=== PATIENT | male | born 1955 | race Caucasian/White ===

== ENCOUNTER 2018-04-20 11:58 | Day surgery (SDC) | payer OTHER, SELFPAY ==
--- NOTE | 2018-04-20 | PATH_ITS ---
[facility] Accession Number: [id number] . 01 Material submitted: . PART A: ANTRAL BIOPSY PART B: GE JUNCTION BIOPSY . 02 Diagnosis: A. Stomach, Antrum, Biopsy: Antral mucosa with reactive gastropathy. No evidence of Helicobacter on H/E stain. Negative for intestinal metaplasia. Negative for dysplasia and malignancy. . B. 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 Negative for dysplasia and malignancy. I04/21/2018 . 02 Electronically signed: . Alexa Johnson MD, Pathologist NPI- [id number] . 01 Gross description: . Received are two formalin-filled containers, both labeled with the patient's name: . A. In a container labeled antral, are three fragments of butler, soft tissue which range in size from less than 0.1 cm to 0.3 x 0.2 x 0.2 cm. All fragments are totally submitted in cassette A. B. In a container labeled GE junction, are multiple less than 0.1 cm to 0.3 cm portions of tissue, which are filtered, wrapped, and entirely submitted in cassette B. ([id number]) /FRR . 02 Pathologist provided ICD-10: R10.9, K22.70 . 02 CPT . 963965, 144474 Performed at: 01 [facility] [address] [facility], [place], [place] [id number] MD Jose J Vallejo MD Phone: [phone] Performed at: 02 [facility] [address] [place], [place] [id number] MD Malachi Mederos MD Phone: [phone]
[2018-04-20 12:19] VITALS: BP 145/91; PULSE 66; RESP 16; TEMP 36.6; O2SAT 98
[2018-04-20] MEDS: SODIUM CHLORIDE 0.9% 1,000 ML 200 ML IV (12:48)
--- NOTE | 2018-04-20 13:05 | PM.HP.1 ---
History of Present Illness Date Patient Seen: 04/20/18 Time Patient Seen: 13:05 Chief complaint: [id number] Narrative: History of Carranza's esophagus and significant reflux disease now with progressive reflux symptoms despite medical management. Denies dysphagia or odynophagia. It has been several years since his last EGD for Carranza's esophagus surveillance. Patient History Medical History Allergic rhinitis (Acute) Carranza's esophagus (Acute) Erectile dysfunction (Acute) Gastroesophageal reflux disease (Acute) Status post open reduction with internal fixation (ORIF) of fracture of ankle (Acute) Surgical History H/O esophagogastroduodenoscopy (Acute) Status post laparoscopic Juan Jose fundoplication (Acute) Family & Social History Family History: Reviewed 04/20/18 by Reyes Campbell MD Social History: household members spouse Meds Home Medications Medication Instructions Recorded Confirmed Type sildenafil (antihypertensive) 20 mg PO Q DAY PRN #30 tab 01/03/18 04/20/18 Rx ondansetron [Zofran ODT] 8 mg SUBLINGUAL Q8HP PRN 04/20/18 04/20/18 History Allergies Allergy/AdvReac Type Severity Reaction Status Date / Time No Known Drug Allergies Allergy Verified 04/20/18 12:12 Review of Systems Review of Systems Has not changed since his initial evaluation of January 25, 2018 All systems reviewed & are unremarkable except as noted in HPI and below Exam Vital Signs (past 8 hours): Vital Signs - 8 hr 04/20/18 12:19 Temperature 97.9 F Pulse Rate 66 Respiratory Rate 16 Blood Pressure 145/91 H Pulse Oximetry 98 Pulse Oximetry 98 Oxygen Delivery Method Room Air Narrative Exam Narrative: Well-nourished well-developed male in no acute distress. Alert oriented x3 is at the bedside Neck is supple Chest clear to auscultation Abdomen soft, nondistended, nontender. Well-healed laparoscopic scars without hernias. Extremities show no clubbing, cyanosis, or edema Objective Labs Labs: No recent laboratory or radiographic studies for review Assessment & Plan Plan: Assessment/Plan Narrative: 63-year-old male with history of Carranza's esophagus and significant reflux disease status post Juan Jose fundoplication now with progressive symptoms of reflux despite medical management. He certainly could have recurrent disease, neoplasm, or slipped Juan Jose. EGD with biopsy is recommended. Technical details of the procedure were discussed. Risks, benefits, alternatives were explained. Risks including but not limited to sedation, aspiration, bleeding, pain, missed lesion, nondiagnostic biopsy, inadequate biopsy, recurrent disease, need for further surgery, need for further tests, need for further studies, esophageal perforation, gastric perforation, duodenal perforation, need for major thoracic surgery, need for major abdominal surgery, and all attendant risks of major emergent surgery were all discussed at length. Questions were answered to his satisfaction, and he voiced understanding. Consent was placed on the chart. Proceed as above.
--- NOTE | 2018-04-20 13:12 | P.HP_ITS ---
History of Present Illness Date Patient Seen: 04/20/18 Time Patient Seen: 13:05 Chief complaint: [id number] Narrative: History of Carranza's esophagus and significant reflux disease now with progressive reflux symptoms despite medical management. Denies dysphagia or odynophagia. It has been several years since his last EGD for Carranza's esophagus surveillance. Patient History Medical History Allergic rhinitis (Acute) Carranza's esophagus (Acute) Erectile dysfunction (Acute) Gastroesophageal reflux disease (Acute) Status post open reduction with internal fixation (ORIF) of fracture of ankle ( Acute) Surgical History H/O esophagogastroduodenoscopy (Acute) Status post laparoscopic Juan Jose fundoplication (Acute) Family & Social History Family History: Reviewed 04/20/18 by Reyes Campbell MD Social History: household members spouse Meds Home Medications Medication Instructions Recorded Confirmed Type sildenafil (antihypertensive) 20 mg PO Q DAY PRN #30 tab 01/03/18 04/20/18 Rx ondansetron [Zofran ODT] 8 mg SUBLINGUAL Q8HP PRN 04/20/18 04/20/18 History Allergies Allergy/AdvReac Type Severity Reaction Status Date / Time No Known Drug Allergies Allergy Verified 04/20/18 12:12 Review of Systems Review of Systems Has not changed since his initial evaluation of January 25, 2018 All systems reviewed & are unremarkable except as noted in HPI and below Exam Vital Signs (past 8 hours): Vital Signs - 8 hr 3 04/20/18 12:19 Temperature 97.9 F Pulse Rate 66 Respiratory Rate 16 Blood Pressure 145/91 H Pulse Oximetry 98 Pulse Oximetry 98 Oxygen Delivery Method Room Air Narrative Exam Narrative: Well-nourished well-developed male in no acute distress. Alert oriented x3 is at the bedside Neck is supple Chest clear to auscultation Abdomen soft, nondistended, nontender. Well-healed laparoscopic scars without hernias. Extremities show no clubbing, cyanosis, or edema Objective Labs Labs: No recent laboratory or radiographic studies for review Assessment & Plan Plan: Assessment/Plan Narrative: 63-year-old male with history of Carranza's esophagus and significant reflux disease status post Juan Jose fundoplication now with progressive symptoms of reflux despite medical management. He certainly could have recurrent disease, neoplasm, or slipped Juan Jose. EGD with biopsy is recommended. Technical details of the procedure were discussed. Risks, benefits, alternatives were explained. Risks including but not limited to sedation, aspiration, bleeding, pain, missed lesion, nondiagnostic biopsy, inadequate biopsy, recurrent disease , need for further surgery, need for further tests, need for further studies, esophageal perforation, gastric perforation, duodenal perforation, need for major thoracic surgery, need for major abdominal surgery, and all attendant risks of major emergent surgery were all discussed at length. Questions were answered to his satisfaction, and he voiced understanding. Consent was placed on the chart. Proceed as above.
--- NOTE | 2018-04-20 13:12 | PM.PREOP ---
Pre-operative Note Interval Note Pre-op Check: History & Physical Reviewed by Physician, Exam Performed and History & Physical exam performed today H&P completed within 30 days and has changed as indicated here:: Patient seen and examined once again today. He was also seen in the office on January 25, 2018. History of physical examination is updated from that time and performed today. Please see the record for such. Proceed with EGD and biopsy as planned. ASA Class (for procedural sedation): II
[2018-04-20] MEDS: fentaNYL 250 MCG/5 ML INJ IV (13:22)
[2018-04-20] MEDS: MIDAZOLAM 5 MG/5 ML VIAL IV (13:23)
[2018-04-20] MEDS: LIDOCAINE 4% SOLN 50 ML 20 ML TOP (13:23)
[2018-04-20] MEDS: TETRACAINE/BENZOCAINE/BUTAMBEN (CETACAINE) BOTTLE 1 SPRAY TOP (13:24)
--- NOTE | 2018-04-20 13:34 | PM.OP.ENDO ---
Operative Date/Time/Diagnoses - Date of procedure: 04/13/18 Time of procedure: 13:34 Pre-op diagnosis: Gastroesophageal reflux disease and history of Carranza's esophagus Post-op diagnosis: same Procedure & Clinicians Study performed: 1. Sedation per surgeon 2. Esophagogastroduodenoscopy with cold forceps biopsies Same procedure as scheduled: Yes Indications: 63-year-old male with longstanding history of intractable reflux disease now status post Juan Jose fundoplication who presented with recurrent episodes of reflux requiring medical management. Furthermore, he has a history of Carranza's esophagus and it has been sometime since his last surveillance examination. EGD is currently recommended. Surgeon: Reyes Campbell Procedure Notes Procedure in detail: After obtaining informed consent, the patient was brought to the GI suite and placed in the left lateral decubitus position on the examination table. After placement of appropriate monitors, the patient was given incremental doses of Versed and Fentanyl until an appropriate level of sedation was achieved. A time out was held per SCOAP protocol. A bite block was gently placed between the patient's teeth. The endoscope was lubricated and then passed into the patient's posterior oropharynx. The esophagus was cannulated under direct vision and the scope was passed to the second portion of the duodenum without difficulty. The scope was then withdrawn with careful examination of all areas of the upper GI tract and mucosa. In the stomach, the instrument was retroflexed and the GE junction examined. The fundoplication appeared to be intact but could not be fully examined. There was some suggestion of a slipped wrap. The scope was straightened and the procedure continued with examination of the remainder of the upper GI tract. Findings are noted above. Air was aspirated from the stomach and the endoscope gently removed from the esophagus. The patient was allowed to awaken from sedation without difficulty and taken to the post-anesthesia care unit in good condition. Scope withdrawal time: Not applicable Sedation minutes: 9 Findings: Carranza's esophagus (Moderate irregular esophagitis at a foreshortened GE junction located at 35 cm from the incisors), gastritis and other findings (Duodenitis) Specimen(s): other (1. Antral biopsies 2. Gastroesophageal junction biopsies) Complications: none Recommendations: Reflux diet, No ASA/NSAIDS, EGD in 3 years and Continue medication(s) Plan for aftercare: 1. Discharge to home 2. Follow up in surgery Clinic in 2 weeks 3. Likely to require upper GI study in Radiology Follow up: weeks (Two weeks in surgery clinic) Disposition: PACU
[2018-04-20 13:40] VITALS: BP 117/86; PULSE 68; RESP 16; TEMP 36; O2SAT 96
[2018-04-20 13:45] VITALS: BP 120/83; PULSE 72; RESP 16; O2SAT 96
[2018-04-20 13:49] VITALS: BP 124/79; PULSE 75; RESP 16; O2SAT 96
[2018-04-20 13:53] VITALS: BP 105/71; PULSE 79; RESP 16; TEMP 36.3; O2SAT 95
[2018-04-20 14:06] VITALS: BP 114/74; PULSE 69; RESP 16; TEMP 36.5; O2SAT 95
== END 2018-04-20 14:13 | disposition home or self-care (01) ==
PROVIDERS: PCP Family Medicine; Visit Provider Surgery
PROC: 0DJ08ZZ Inspection of Upper Intestinal Tract, Via Natural or Artificial Opening Endoscopic (ICD-10-PCS; CPT 43235; principal; 2018-04-20 13:00)
DX: K22.70 Barrett's esophagus without dysplasia (principal); K21.9 Gastro-esophageal reflux disease without esophagitis
CPT/HCPCS: 43239; 99152; J2250; J3010

== ENCOUNTER → 2018-05-01 07:29 | Outpatient (CLI) | payer OTHER, SELFPAY ==
--- NOTE | 2018-05-01 07:31 | DI.RAD.S_ITS ---
PROCEDURE: FL UPPER GI W AIR INDICATIONS: 63 year-old male with gastroesophageal reflux after Juan Jose, and no obvious disease on recent EGD. COMPARISON: [facility], CT, ABDOMEN/PELVIS WITH CONTRAST, 07/11/2017, 17:06. FINDINGS: KUB: Preprocedural online program coordinator film demonstrates a normal bowel gas pattern. No suspicious abdominal calcifications. Visualized solid organ contours appear normal. Bony structures appear unremarkable. Esophagus: Esophageal mucosa is normal on air-contrast views. On single-contrast views, the Juan Jose fundoplication wrap appears intact, but has herniated superior to the diaphragmatic hiatus. A cricopharyngeal bar is noted within the hypopharynx. There is normal esophageal peristalsis. No strictures or diverticula. There is elicited gastroesophageal reflux to the aortic arch level with patient coughing. There is delayed transit of a calibrated barium tablet through the gastroesophageal junction. Stomach: The stomach is normally distensible, with normal rugal fold thickness. No mucosal masses or ulcers. Pylorus and duodenal bulb appear normal in morphology. Duodenal folds are normal in thickness as well. Small periampullary diverticulum is incidentally noted in the second portion of the duodenum. IMPRESSION: 1. Juan Jose fundoplication wrap appears intact but has herniated above the diaphragmatic hiatus, not significantly changed since July 2017 CT scan. 2. Elicited gastroesophageal reflux during the examination with patient coughing. 3. Mildly delayed transit of a calibrated barium tablet through the gastroesophageal junction. 4. Small incidental periampullary diverticulum in the second portion of the duodenum. 5. Prominent cricopharyngeal bar in the hypopharynx, a finding that can be associated with gastroesophageal reflux. Dictated by: Chandrakant Lyons M.D. on 05/01/2018 at 8:46 Approved by: Chandrakant Lyons M.D. on 05/01/2018 at 8:52
== END ==
PROVIDERS: PCP Family Medicine; Visit Provider Surgery
DX: K21.9 Gastro-esophageal reflux disease without esophagitis (principal)
CPT/HCPCS: 74247

== ENCOUNTER → 2019-01-18 08:38 | Outpatient (CLI) | payer OTHER, SELFPAY ==
[2019-01-18 09:33] LABS: Hematocrit 45.5 % (41-53); Hemoglobin 15.8 g/dL (13.5-17.5); Mean Corpuscular HGB Conc 34.6 % (30-36); Mean Corpuscular Hemoglobin 29.2 PG (26-34); Mean Corpuscular Volume 84.4 fL (80-100); Platelet Count 151 X10^3/uL (150-400); Red Blood Cell Count 5.39 X10^6/uL (4.5-5.9); Red Cell Distribution Width 14.1 % (11.6-14.8); White Blood Cell Count 4.5 X10^3/uL (4.5-11.0)
[2019-01-18 09:47] LABS: Hemoglobin A1C% w Est Avg Glu 4.9 % (4.0-6.0)
[2019-01-18 10:54] LABS: Alanine Aminotransferase 33 IU/L (21-72); Albumin 4.4 g/dL (3.5-5.0); Albumin Globulin Ratio 1.8 (1.0-2.8); Alkaline Phosphatase 59 U/L (38-126); Aspartate Aminotransferase 22 IU/L (17-59); BUN Creatinine Ratio 25.6 (6-22); Bilirubin Total 0.8 mg/dL (0.2-1.3); Blood Urea Nitrogen 23 mg/dL (9-20); Calcium 9.4 mg/dL (8.4-10.2); Carbon Dioxide 30 mmol/L (22-32); Chloride 102 mmol/L (98-107); Cholesterol 171 mg/dL (140-199); Estimated Glomerular Filt Rate > 60.0 mL/min (>60); Globulin 2.4 g/dL (1.7-4.1); Glucose 81 mg/dL (80-110); HDL Cholesterol 56 mg/dL (40-60); HEMOLYSIS < 15 (0-50); LDL Cholesterol Calculated 93 mg/dL (<100); Sodium 140 mmol/L (137-145); Total Protein 6.8 g/dL (6.3-8.2); Triglycerides 110 mg/dL (35-150)
[2019-01-18 11:23] LABS: Prostate Specific Antigen Scrn 1.95 ng/mL (0.1-4.0)
== END ==
PROVIDERS: Visit Provider Nurse Practitioner Family
DX: Z68.31 Body mass index [BMI] 31.0-31.9, adult (principal); R35.0 Frequency of micturition; Z00.00 Encounter for general adult medical examination without abnormal findings; Z12.5 Encounter for screening for malignant neoplasm of prostate
CPT/HCPCS: 36415; 80053; 80061; 83036; 85027; G0103

== ENCOUNTER → 2021-01-14 09:58 | Outpatient (CLI) | payer MEDICARE, OTHER, SELFPAY ==
[2021-01-14 10:38] LABS: Add Manual Diff / Slide Review NO; Basophils Absolute Auto 0 /uL (0-100); Basophils Percent Auto 0.4 % (0-2); Eosinophils Absolute Auto 100 /uL (0-450); Eosinophils Percent Auto 1.5 % (2-4); Hematocrit 45.6 % (41-53); Hemoglobin 15.7 g/dL (13.5-17.5); Lymphocytes Absolute Auto 1500 /uL (1100-4500); Lymphocytes Percent Auto 32.7 % (25-40); Mean Corpuscular HGB Conc 34.4 % (30-36); Mean Corpuscular Volume 84.4 fL (80-100); Monocytes Absolute Auto 400 /uL (0-900); Monocytes Percent Auto 8.1 % (3-14); Neutrophils Absolute Auto 2600 /uL (1500-7000); Neutrophils Percent Auto 57.3 % (50-75); Platelet Count 140 X10^3/uL (150-400); Red Blood Cell Count 5.41 X10^6/uL (4.5-5.9); Red Cell Distribution Width 14.1 % (11.6-14.8); White Blood Cell Count 4.5 X10^3/uL (4.5-11.0)
[2021-01-14 11:04] LABS: Alanine Aminotransferase 26 IU/L (<50); Albumin 4.7 g/dL (3.5-5.0); Albumin Globulin Ratio 1.7 (1.0-2.8); Alkaline Phosphatase 65 U/L (38-126); Aspartate Aminotransferase 29 IU/L (17-59); BUN Creatinine Ratio 19.6 (6-22); Blood Urea Nitrogen 18 mg/dL (9-20); Carbon Dioxide 31 mmol/L (22-32); Chloride 103 mmol/L (98-107); Cholesterol 174 mg/dL (140-199); Estimated Glomerular Filt Rate > 60.0 mL/min (>60); Globulin 2.7 g/dL (1.7-4.1); Glucose 98 mg/dL (80-110); HDL Cholesterol 50 mg/dL (40-60); HEMOLYSIS < 15 (0-50); LDL Cholesterol Calculated 97 mg/dL (<100); Potassium 4.9 mmol/L (3.4-5.1); Sodium 139 mmol/L (137-145); Total Protein 7.4 g/dL (6.3-8.2); Triglycerides 134 mg/dL (35-150)
[2021-01-14 11:34] LABS: Prostate Specific Antigen 2.18 ng/mL (0.10-4.00)
[2021-01-14 11:36] LABS: TSH w/ Reflex to FT4 3.68 uIU/mL (0.47-4.68)
== END ==
PROVIDERS: PCP Family Medicine; Referring Provider Family Medicine; Visit Provider Family Medicine
DX: Z00.00 Encounter for general adult medical examination without abnormal findings (principal); K22.719 Barrett's esophagus with dysplasia, unspecified; Z83.3 Family history of diabetes mellitus
CPT/HCPCS: 36415; 80053; 80061; 83036; 84153; 84443; 85025; G0103

== ENCOUNTER → 2021-11-27 10:44 | Outpatient (CLI) | payer MEDICARE, OTHER, SELFPAY ==
[2021-11-27 11:41] LABS: COVID19 -Nasal RAPID POSITIVE (Negative)
== END ==
PROVIDERS: PCP Family Medicine; Visit Provider Physician Assistant
DX: U07.1 COVID-19 (principal); J02.9 Acute pharyngitis, unspecified; Z20.822 Contact with and (suspected) exposure to COVID-19
CPT/HCPCS: 87635

== ENCOUNTER 2022-01-15 10:40 | Emergency (ER) | payer MEDICARE, OTHER, SELFPAY ==
[2022-01-15] VITALS (8 sets, daily range): BP systolic 139–150; BP diastolic 82–95; PULSE 61–68; RESP 17–20; TEMP 36.4; O2SAT 96–100; BMI 31.5
--- NOTE | 2022-01-15 11:26 | DI.RAD.S_ITS ---
PROCEDURE: XR CHEST 1V INDICATIONS: chest pain TECHNIQUE: One view of the chest was acquired. COMPARISON: [facility], , CHEST 2 VIEW, 05/04/2016, 15:41. FINDINGS: Surgical changes and devices: None. Lungs and pleura: Lungs are clear. No pleural effusions or pneumothorax. Mediastinum: Mediastinal contours appear normal. Heart size is normal. Bones and chest wall: No suspicious bony lesions. Remote, healed right lateral rib fractures. Overlying soft tissues appear unremarkable. IMPRESSION: No acute cardiopulmonary disease. Dictated by: Suzanne Mcdowell M.D. on 01/15/2022 at 11:59 Approved by: Suzanne Mcdowell M.D. on 01/15/2022 at 12:00
--- NOTE | 2022-01-15 11:53 | ED.SYNCOPE ---
HPI - Syncope General Chief Complaint: Syncope Stated Complaint: passed out yesterday coughing Time Seen by Provider: 01/15/22 11:50 Source: patient Mode of arrival: Ambulatory History of Present Illness HPI narrative: Patient is a 67-year-old male with history of acid reflex and decent procedure presenting today with cough and cough syncope. He states he was diagnosed with COVID in November he is vaccinated x3. He has had a cough slightly productive with yellow sputum ever since. He actually feels than he did in November however yesterday he coughed so hard that he passed out. He now it still feels like he sees stars even at rest. He feels light headed. He has not passed out since then. He denies numbness tingling or weakness. He is not having palpitations or chest pain. Related Data Previous Rx's Medication Instructions Recorded omeprazole 20 mg capsule,delayed 20 mg PO DAILY #90 cap 11/21/20 release albuterol sulfate 90 mcg/actuation 2 puff INHALATION Q4-6H PRN #8.5 01/15/22 aerosol inhaler gram Allergies Allergy/AdvReac Type Severity Reaction Status Date / Time No Known Drug Allergies Allergy Verified 01/15/22 11:25 Review of Systems Review of Systems Narrative: GENERAL: Denies chills, fatigue, malaise, fever, sweats, travel HEENT: Denies sinus pain, ear pain, sore throat, difficulty swallowing, neck pain RESPIRATORY: Denies dyspnea, cough, wheezing, hemoptysis, sputum. CARDIOVASCULAR: Denies chest pain, palpitations, orthopnea, edema GASTROINTESTINAL: Denies nausea, vomiting, abdominal pain, diarrhea, constipation, melena. : Denies dysuria, frequency, incontinence, hematuria, urinary retention, flank pain. MUSCULOSKELETAL: Denies weakness, joint pain, or bony pain SKIN: No rash, no erythema, no pruritus NEUROLOGIC: see HPI PSYCHIATRIC: No concerning psychosocial issues. 12 point review of systems is negative except for those stated above and HPI Patient History Medical History Allergic rhinitis Carranza's esophagus (~2013) Erectile dysfunction Family history of diabetes mellitus Gastroesophageal reflux disease (~2013) Well adult exam Surgical History Anesthesia H/O esophagogastroduodenoscopy Status post laparoscopic Juan Jose fundoplication (~2013) Status post open reduction with internal fixation (ORIF) of fracture of ankle Family History Brother Age: 70 Hypertension Stroke Sister Age: 68 Hypertension Sister Age: 72 Diabetes mellitus Hypertension Hyperlipidemia Mother Cancer Grandmother Cancer History of heart disease Mental health problem Grandmother Cancer History of heart disease Social History household members: spouse Smoking Status: Never smoker second hand exposure: No alcohol intake: current (8-16oz of wine a day) substance use type: does not use Smoking Status: Never smoker alcohol intake frequency: 0-2 drinks per day Alcohol type: wine Substance Use Type: does not use Exam Initial Vital Signs Initial Vital Signs: Vital Signs Temperature 97.5 F L 01/15/22 11:13 Pulse Rate 68 01/15/22 11:13 Respiratory Rate 17 01/15/22 11:13 Blood Pressure 148/85 H 01/15/22 11:13 Pulse Oximetry 98 01/15/22 11:13 GENERAL: Alert well-appearing 57-year-old male and in no acute distress. HEENT: Head atraumatic,EOMI, pupils reactive, face symmetric, moist mucous membranes CARDIOVASCULAR: Regular rate and rhythm without murmurs, rubs or gallops. RESPIRATORY: Breath sounds equal bilaterally, no wheezes rales or rhonchi. ABDOMEN: Soft, nontender. Normoactive bowel sounds all 4 quadrants. No guarding or rebound. EXTREMITIES: Normal range of motion, no clubbing or edema. Neurovascularly intact NEUROLOGICAL: Alert and oriented x4.Normal gait and speech. Cranial nerves II through XII grossly intact. Good [id number], good [id number], strength equal bilaterally, no dysarthria or aphasia, sensation in tact to soft touch bilaterally, no visual changes, no facial droop SKIN: Warm, dry, no laceration, no petechiae, no rashes or lesions. Scores NIH Stroke Scale Level of Conciousness: Alert, keenly responsive Ask month/age: Answers both questions correctly. Open/close eyes, close hand: Performs both tasks correctly Best gaze horizontal: Normal Visual lewis: No visual loss Facial palsy: Normal symetrical movement Left arm drift: No drift for full 10 sec Right arm drift: No drift for full 10 sec Left leg drift: No drift for full 5 sec Right leg drift: No drift for full 5 sec Limb ataxia: Absent Sensory on face/arms/legs: Normal, no sensory loss Best language: No aphasia, normal Dysarthria: Normal Extinction or inattention: No abnormality Total NIH Stroke scale score: 0 Course Orders Ordered: ED Orders 01/15/22 11:21 COVID19 -Nasal swab/Pre-Proc Stat 01/15/22 11:26 XR chest 1V Stat EKG-12 Lead Stat 01/15/22 12:00 Complete Blood Count AUTO DIFF Stat Comprehensive Metabolic Panel Stat D Dimer Stat Lipase Stat Magnesium Stat NT-proBNP (BNP-Adult 18+) Stat Prothrombin Time INR Stat Troponin & CK Cardiac Panel Stat Vital Signs Vital signs: Vital Signs - 8 hr 01/15/22 11:13 01/15/22 16:00 01/15/22 17:00 Temperature 97.5 F L Pulse Rate 68 67 67 Respiratory Rate 17 20 18 Blood Pressure 148/85 H Blood Pressure [Left Arm] 150/95 H 148/86 H Pulse Oximetry 98 99 99 01/15/22 17:13 01/15/22 17:15 01/15/22 17:30 Temperature Pulse Rate 64 67 61 Respiratory Rate Blood Pressure 139/82 Blood Pressure [Left Arm] Pulse Oximetry 96 99 100 01/15/22 17:45 01/15/22 18:02 Temperature Pulse Rate 65 68 Respiratory Rate 20 Blood Pressure 139/82 Blood Pressure [Left Arm] Pulse Oximetry 99 99 MDM - Syncope Lab Data Result diagrams: 01/15/22 12:00 01/15/22 12:00 Labs: Lab Results 01/15/22 01/15/22 01/15/22 Range/Units 11:21 12:00 12:00 WBC 4.6 (4.5-11.0) X10^3/uL RBC 5.27 (4.5-5.9) X10^6/uL Hgb 15.4 (13.5-17.5) g/dL Hct 44.6 (41-53) % MCV 84.7 (80-100) fL MCH 29.1 (26-34) PG MCHC 34.4 (30-36) % RDW 13.8 (11.6-14.8) % Plt Count 158 (150-400) X10^3/uL Neut % (Auto) 59.0 (50-75) % Lymph % (Auto) 31.1 (25-40) % [place] % (Auto) 7.2 (3-14) % Eos % (Auto) 2.2 (2-4) % Baso % (Auto) 0.5 (0-2) % Lymph # (Auto) Not Reportable [place] # (Auto) Not Reportable Baso # (Auto) Not Reportable PT 11.9 (10.1-12.7) SECONDS INR 1.1 (0.9-1.3) D-Dimer (<230) ng/mL Sodium (137-145) mmol/L Potassium (3.4-5.1) mmol/L Chloride (98-107) mmol/L Carbon Dioxide (22-32) mmol/L BUN (9-20) mg/dL Creatinine (0.66-1.25) mg/dL Estimated GFR (>60) mL/min BUN/Creatinine Ratio (6-22) Glucose (80-110) mg/dL Calcium (8.4-10.2) mg/dL Magnesium (1.6-2.3) mg/dL Total Bilirubin (0.2-1.3) mg/dL AST (17-59) IU/L ALT (<50) IU/L Alkaline Phosphatase (38-126) U/L Total Creatine Kinase (55-170) U/L CK-MB (CK-2) CK-MB (CK-2) Rel Index Troponin I (0.01-0.034) ng/mL NT-Pro-B Natriuret Pep (<125) pg/mL Total Protein (6.3-8.2) g/dL Albumin (3.5-5.0) g/dL Globulin (1.7-4.1) g/dL Albumin/Globulin Ratio (1.0-2.8) Lipase (23-300) U/L SARS-CoV-2 (PCR) Negative (Negative) 01/15/22 01/15/22 Range/Units 12:00 12:00 WBC (4.5-11.0) X10^3/uL RBC (4.5-5.9) X10^6/uL Hgb (13.5-17.5) g/dL Hct (41-53) % MCV (80-100) fL MCH (26-34) PG MCHC (30-36) % RDW (11.6-14.8) % Plt Count (150-400) X10^3/uL Neut % (Auto) (50-75) % Lymph % (Auto) (25-40) % [place] % (Auto) (3-14) % Eos % (Auto) (2-4) % Baso % (Auto) (0-2) % Lymph # (Auto) [place] # (Auto) Baso # (Auto) PT (10.1-12.7) SECONDS INR (0.9-1.3) D-Dimer 397 H (<230) ng/mL Sodium 141 (137-145) mmol/L Potassium 4.4 (3.4-5.1) mmol/L Chloride 105 (98-107) mmol/L Carbon Dioxide 32 (22-32) mmol/L BUN 17 (9-20) mg/dL Creatinine 0.85 (0.66-1.25) mg/dL Estimated GFR > 60.0 (>60) mL/min BUN/Creatinine Ratio 20.0 (6-22) Glucose 89 (80-110) mg/dL Calcium 9.4 (8.4-10.2) mg/dL Magnesium 2.3 (1.6-2.3) mg/dL Total Bilirubin 0.8 (0.2-1.3) mg/dL AST 27 (17-59) IU/L ALT 25 (<50) IU/L Alkaline Phosphatase 65 (38-126) U/L Total Creatine Kinase 42 L (55-170) U/L CK-MB (CK-2) TNP CK-MB (CK-2) Rel Index TNP Troponin I < 0.012 (0.01-0.034) ng/mL NT-Pro-B Natriuret Pep 68 (<125) pg/mL Total Protein 7.3 (6.3-8.2) g/dL Albumin 4.5 (3.5-5.0) g/dL Globulin 2.8 (1.7-4.1) g/dL Albumin/Globulin Ratio 1.6 (1.0-2.8) Lipase 51 (23-300) U/L SARS-CoV-2 (PCR) (Negative) Point of Care Testing Glucose POC 89 Imaging Data Chest x-ray: Radiologist's Impression: PROCEDURE:? XR CHEST 1V ? INDICATIONS:? chest pain ? TECHNIQUE:? One view of the chest was acquired.? ? COMPARISON:? [facility], , CHEST 2 VIEW, 05/04/2016, 15:41. ? FINDINGS:? ? Surgical changes and devices:? None.? ? Lungs and pleura:? Lungs are clear.? No pleural effusions or pneumothorax.? ? Mediastinum:? Mediastinal contours appear normal.? Heart size is normal.? ? Bones and chest wall:? No suspicious bony lesions.? Remote, healed right lateral rib fractures.? Overlying soft tissues appear unremarkable.? ? IMPRESSION:? No acute cardiopulmonary disease.? ? ? Dictated by: Suzanne Mcdowell M.D. on 01/15/2022 at 11:59 ? ? ECG Data Interpretation: Normal as rate 66 TN interval 176 QRS 100 QTC 389, no ST changes no T-wave inversions MDM Narrative Medical decision making narrative: Patient had an episode of cough syncope yesterday. He has no focal deficits at this time. Chronic ongoing cough since he had COVID. His he has no focal deficits at this time. No need for any further imaging. He is given an albuterol inhaler along with a spacer and teaching by respiratory. Discharge Plan Departure Patient Disposition: Home Clinical Impression: Cough syncope Instructions: DI for Syncope in Adults (Fainting) Activity Restrictions/Additional Instructions: *You have been diagnosed with cough syncope *What to do: At this time your syncopal episode was due from coughing and not getting oxygen she refrain. Use inhaler to see if it helps her coughing. He has been trying use 3 times a day to see if it decreases your cough. He can also use it with a coughing attack *Continue to take medications as directed Albuterol 1-2 puffs every 4 hours if needed --> SENT TO [facility] *Follow up with your primary care provider in 2-3 days or call [phone] *Return to ER if you should have worsening cough, chest pain, passing out, fever or any new, worsening or concerning symptoms Prescriptions: New albuterol sulfate 90 mcg/actuation HFA aerosol inhaler 2 puff INHALATION Q4-6H PRN (Reason: shortness of breath or wheezing) Qty: 8.5 0RF No Action omeprazole 20 mg capsule,delayed release(DR/EC) 20 mg PO DAILY Qty: 90 1RF Referrals: Jorge Rodriguez DO [Primary Care Provider] -
[2022-01-15 12:17] LABS: Add Manual Diff / Slide Review NO; Basophils Percent Auto 0.5 % (0-2); Eosinophils Percent Auto 2.2 % (2-4); Hematocrit 44.6 % (41-53); Hemoglobin 15.4 g/dL (13.5-17.5); Lymphocytes Percent Auto 31.1 % (25-40); Mean Corpuscular HGB Conc 34.4 % (30-36); Mean Corpuscular Hemoglobin 29.1 PG (26-34); Mean Corpuscular Volume 84.7 fL (80-100); Monocytes Percent Auto 7.2 % (3-14); Platelet Count 158 X10^3/uL (150-400); Red Blood Cell Count 5.27 X10^6/uL (4.5-5.9); Red Cell Distribution Width 13.8 % (11.6-14.8); White Blood Cell Count 4.6 X10^3/uL (4.5-11.0)
[2022-01-15 12:20] LABS: COVID19 -Nasal RAPID Negative (Negative)
[2022-01-15 12:27] LABS: INR 1.1 (0.9-1.3); Prothrombin Time 11.9 SECONDS (10.1-12.7)
[2022-01-15 12:36] LABS: Alanine Aminotransferase 25 IU/L (<50); Albumin 4.5 g/dL (3.5-5.0); Albumin Globulin Ratio 1.6 (1.0-2.8); Alkaline Phosphatase 65 U/L (38-126); Aspartate Aminotransferase 27 IU/L (17-59); Bilirubin Total 0.8 mg/dL (0.2-1.3); Blood Urea Nitrogen 17 mg/dL (9-20); Calcium 9.4 mg/dL (8.4-10.2); Carbon Dioxide 32 mmol/L (22-32); Chloride 105 mmol/L (98-107); Creatine Kinase 42 U/L (55-170); Estimated Glomerular Filt Rate > 60.0 mL/min (>60); Globulin 2.8 g/dL (1.7-4.1); Glucose 89 mg/dL (80-110); HEMOLYSIS < 15 (0-50); Lipase 51 U/L (23-300); Magnesium 2.3 mg/dL (1.6-2.3); Potassium 4.4 mmol/L (3.4-5.1); Sodium 141 mmol/L (137-145); Total Protein 7.3 g/dL (6.3-8.2)
[2022-01-15 12:48] LABS: NT-proBNP (BNP-Adult 18+) 68 pg/mL (<125); Troponin I < 0.012 ng/mL (0.01-0.034)
[2022-01-15 16:26] LABS: D Dimer 397 ng/mL (<230)
== END 2022-01-15 18:04 | disposition home or self-care (01) ==
PROVIDERS: Emergency Provider Emergency Medicine; PCP Family Medicine
DX: R55 Syncope and collapse (principal); R05.4 Cough syncope; Z20.822 Contact with and (suspected) exposure to COVID-19
CPT/HCPCS: 36415; 71045; 80053; 82550; 83690; 83735; 83880; 84484; 85025; 85379; 85610; 87635; 93005; 93010; 99284; C9803

== ENCOUNTER → 2023-01-18 09:49 | Outpatient (CLI) | payer MEDICARE, OTHER, SELFPAY ==
[2023-01-18 10:20] LABS: Add Manual Diff / Slide Review NO; Basophils Absolute Auto 0 /uL (0-100); Basophils Percent Auto 0.4 % (0-2); Eosinophils Absolute Auto 100 /uL (0-450); Eosinophils Percent Auto 1.7 % (2-4); Hematocrit 45.1 % (41-53); Hemoglobin 15.7 g/dL (13.5-17.5); Lymphocytes Absolute Auto 1400 /uL (1100-4500); Lymphocytes Percent Auto 25.4 % (25-40); Mean Corpuscular HGB Conc 34.8 % (30-36); Mean Corpuscular Hemoglobin 29.6 PG (26-34); Mean Corpuscular Volume 84.9 fL (80-100); Monocytes Absolute Auto 400 /uL (0-900); Monocytes Percent Auto 6.4 % (3-14); Neutrophils Absolute Auto 3600 /uL (1500-7000); Neutrophils Percent Auto 66.1 % (50-75); Platelet Count 145 X10^3/uL (150-400); Red Blood Cell Count 5.32 X10^6/uL (4.5-5.9); Red Cell Distribution Width 14.1 % (11.6-14.8); White Blood Cell Count 5.5 X10^3/uL (4.5-11.0)
[2023-01-18 10:32] LABS: HEMOLYSIS < 15 (0-50)
[2023-01-18 10:38] LABS: Alanine Aminotransferase 37 IU/L (<50); Albumin 4.1 g/dL (3.5-5.0); Albumin Globulin Ratio 1.6 (1.0-2.8); Alkaline Phosphatase 63 U/L (38-126); Aspartate Aminotransferase 26 IU/L (17-59); BUN Creatinine Ratio 24.1 (6-22); Blood Urea Nitrogen 20 mg/dL (9-20); Calcium 9.1 mg/dL (8.4-10.2); Carbon Dioxide 31 mmol/L (22-32); Chloride 103 mmol/L (98-107); Cholesterol 159 mg/dL (140-199); Estimated Glomerular Filt Rate > 60 mL/min (>60); Globulin 2.5 g/dL (1.7-4.1); Glucose 88 mg/dL (80-110); HDL Cholesterol 52 mg/dL (40-60); LDL Cholesterol Calculated 77 mg/dL (<100); Potassium 4.3 mmol/L (3.4-5.1); Sodium 140 mmol/L (137-145); Total Protein 6.6 g/dL (6.3-8.2); Triglycerides 151 mg/dL (35-150)
[2023-01-21 04:28] LABS: Prostate Specific Antigen Scrn 1.92 ng/mL (0.1-4.0)
== END ==
PROVIDERS: PCP Family Medicine; Referring Provider Family Medicine; Visit Provider Family Medicine
DX: Z00.00 Encounter for general adult medical examination without abnormal findings (principal); K22.719 Barrett's esophagus with dysplasia, unspecified; N52.8 Other male erectile dysfunction; Z12.5 Encounter for screening for malignant neoplasm of prostate
CPT/HCPCS: 36415; 80053; 80061; 85025; G0103

== ENCOUNTER → 2024-10-20 09:05 | Outpatient (CLI) | payer MEDICARE, OTHER, SELFPAY | PROVIDERS: PCP Family Medicine; Visit Provider Physician Assistant Surgical | DX: M54.50 Low back pain, unspecified (principal) | CPT/HCPCS: 87086 ==

== ENCOUNTER 2024-10-20 09:31 | Emergency (ER) | payer MEDICARE, OTHER, SELFPAY ==
[2024-10-20] VITALS (11 sets, daily range): BP systolic 124–161; BP diastolic 77–92; PULSE 64–69; RESP 13–20; TEMP 36.6; O2SAT 92–100; BMI 34.4
--- NOTE | 2024-10-20 10:02 | DI.RAD.S_ITS ---
PROCEDURE: XR CHEST 1V INDICATIONS: chest pain TECHNIQUE: One view of the chest was acquired. COMPARISON: [facility], CR, XR CHEST 1V, 01/15/2022, 11:29. FINDINGS: Surgical changes and devices: None. Lungs and pleura: Lungs are hypoinflated but clear. No pleural effusions or pneumothorax. Mediastinum: Mediastinal contours appear normal. Heart size is normal. Bones and chest wall: No suspicious bony lesions. Overlying soft tissues appear unremarkable. IMPRESSION: No acute cardiopulmonary abnormality is seen. Dictated by: Promise Reeves M.D. on 10/20/2024 at 9:50 Approved by: Promise Reeves M.D. on 10/20/2024 at 9:51
--- NOTE | 2024-10-20 10:02 | EKG_ITS ---
[address] [address] [address], [place] [address] Test Date: 2024-10-20 Pat Name: Anupam Novoa Department: Room: Gender: Male Transportation Program Director: EDSON : 1955 Requested By: Order Number: [id number] Reading MD: You Mcnamara MD Measurements Intervals [place] Rate: 65 P: 5 [place]: 208 QRS: 20 QRSD: 86 T: 41 QT: 374 QTc: 388 Interpretive Statements Normal sinus rhythm Electronically Signed On 10-22-2024 6:38:42 PST by You Mcnamara MD
[2024-10-20 10:18] LABS: Add Manual Diff / Slide Review NO; Basophils Absolute Auto 100 /uL (0-100); Eosinophils Absolute Auto 100 /uL (0-450); Eosinophils Percent Auto 1.9 % (2-4); Hematocrit 45.4 % (41-53); Hemoglobin 15.5 g/dL (13.5-17.5); Lymphocytes Absolute Auto 1600 /uL (1100-4500); Lymphocytes Percent Auto 29.5 % (25-40); Mean Corpuscular HGB Conc 34.2 % (30-36); Mean Corpuscular Hemoglobin 29.4 PG (26-34); Mean Corpuscular Volume 85.9 fL (80-100); Monocytes Absolute Auto 300 /uL (0-900); Monocytes Percent Auto 6.2 % (3-14); Neutrophils Absolute Auto 3400 /uL (1500-7000); Neutrophils Percent Auto 61.4 % (50-75); Platelet Count 141 X10^3/uL (150-400); Red Blood Cell Count 5.29 X10^6/uL (4.5-5.9); Red Cell Distribution Width 13.7 % (11.6-14.8); White Blood Cell Count 5.5 X10^3/uL (4.5-11.0)
[2024-10-20 10:24] LABS: INR 1.1 (0.9-1.3); Prothrombin Time 11.9 SECONDS (9.4-12.5)
[2024-10-20 10:27] LABS: PTT Partial Thromboplastin Tim 34 SECONDS (25.1-36.5)
[2024-10-20 10:28] LABS: Alanine Aminotransferase 37 IU/L (<50); Albumin 4.2 g/dL (3.5-5.0); Albumin Globulin Ratio 1.6 (1.0-2.8); Alkaline Phosphatase 67 U/L (38-126); Aspartate Aminotransferase 31 IU/L (17-59); BUN Creatinine Ratio 18.4 (6-22); Bilirubin Total 0.8 mg/dL (0.2-1.3); Blood Urea Nitrogen 18 mg/dL (9-20); Calcium 9.4 mg/dL (8.4-10.2); Carbon Dioxide 30 mmol/L (22-32); Chloride 105 mmol/L (98-107); Creatine Kinase 31 U/L (55-170); Estimated Glomerular Filt Rate > 60 mL/min (>60); Globulin 2.6 g/dL (1.7-4.1); Glucose 94 mg/dL (80-110); HEMOLYSIS < 15 (0-50); Lipase 41 U/L (23-300); Magnesium 2.1 mg/dL (1.6-2.3); Potassium 4.6 mmol/L (3.4-5.1); Sodium 139 mmol/L (137-145); Total Protein 6.8 g/dL (6.3-8.2)
[2024-10-20 10:40] LABS: NT-proBNP (BNP-Adult 18+) 47 pg/mL (<125); Troponin I < 0.012 ng/mL (0.01-0.034)
[2024-10-20 10:56] LABS: Influenza A - CEPHEID Flu A NEGATIVE (NEGATIVE); Influenza B - CEPHEID Flu B NEGATIVE (NEGATIVE)
[2024-10-20 10:57] LABS: COVID-19 CEPHEID 4-PLEX PCR Negative (Negative)
--- NOTE | 2024-10-20 11:02 | ED_ITS ---
HPI - Chest Pain General Chief Complaint: Chest Pain Stated Complaint: sudden onset confusion can't focus from [facility] Time Seen by Provider: 10/20/24 10:57 Source: patient, RN notes reviewed and old records reviewed Mode of arrival: Family Vehicle Limitations: no limitations Limitations: no limitations History of Present Illness HPI narrative: 69-year-old male history of acid reflux, Carranza's esophagus and hiatal hernia patient states he has had sort of a brain fog for the past 2 weeks states yesterday he got lost while driving he states it was nighttime it was raining but he should known where he was going. He states he has had issues kind of on and off for the past 2 weeks and even in the past 2 years. He states he thinks he has had long COVID. Patient states did have some back pain chronically has had some increased pain that radiated to both kidneys in the past 2 weeks although it has gotten better since. He does not have any back pain currently. Denies fevers or chills. No headaches, no sudden vision changes, no chest pain or shortness of breath. No nausea or vomiting. No issues with bowel movements or urination. No changes to speech no numbness tingling or weakness or difficulty with movement. He describes some fatigue and feeling tired. Has had an occasional cough felt like his throat was a little bit scratchy for the past 2 weeks but had normal speech with no sore throat. Patient states he felt funny about an hour prior to arrival but does not have any acute neurologic changes feels normal at this time. He states his has been telling him to come be evaluated for the past 2 days. States he takes Prilosec as needed no other prescription medications has a history of Carranza's esophagus and hiatal hernia and has a what sounds like a Juan Jose fundoplication. No known drug allergies. No tobacco has 2 8 oz or less glasses of wine daily, no recreational drugs. Dr. Rodriguez is his primary care physician. Related Data Previous Rx's Medication Instructions Recorded ondansetron 8 mg disintegrating 8 mg PO Q8H PRN nausea and 10/08/22 tablet vomiting #90 tabs omeprazole 20 mg capsule,delayed 20 mg PO DAILY #90 caps 02/27/23 release Allergies Allergy/AdvReac Type Severity Reaction Status Date / Time No Known Drug Allergies Allergy Verified 10/20/24 10:01 Review of Systems Review of Systems ROS Unobtainable: All systems reviewed & are unremarkable except as noted in HPI and below Patient History Medical History Medicare annual wellness visit, subsequent Visual changes Change in multiple pigmented skin lesions Family history of diabetes mellitus Well adult exam Allergic rhinitis Erectile dysfunction Carranza's esophagus (~2013) Gastroesophageal reflux disease (~2013) Surgical History Anesthesia H/O esophagogastroduodenoscopy Status post open reduction with internal fixation (ORIF) of fracture of ankle Status post laparoscopic Juan Jose fundoplication (~2013) Family History Brother Age: 73 Hypertension Stroke Sister Age: 71 Hypertension Sister Age: 75 Diabetes mellitus Hypertension Hyperlipidemia Mother Cancer Grandmother Cancer History of heart disease Mental health problem Grandmother Cancer History of heart disease Social History household members: spouse Smoking Status: Former smoker second hand exposure: No alcohol intake: current (8-16oz of wine a day) substance use type: does not use Smoking Status: Former smoker tobacco type: cigarettes alcohol intake frequency: 0-2 drinks per day Alcohol type: wine Exam Narrative Exam Narrative: GEN: well nourished, well appearing male, alert and oriented x 3, patient appears to be in mild distress. HEENT: Atraumatic, pupils are equal round reactive to light, extraocular movements are intact, nares are clear, there is no conjunctival pallor. Throat is clear without any exudates, erythema, tonsillar enlargement or uvular deviation, no facial droop. Normal speech. HEART: Regular rate and rhythm without murmur, clicks, rubs. No carotid bruits, pulses are equal in upper and lower extremities LUNGS:Lungs clear to auscultation, no wheezes, rales, crackles, chest moves symmetrically ABD:bowel sounds normal, soft, non-tender, no guarding, rebound, rigidity, no masses noted, no hepatosplenomegaly :No CVA tenderness MSCL: Non-tender, no muscle atrophy, muscles strength 5/5 upper and lower extremities, full range of motion, normal gait NEURO:CN 2-12 intact, sensation normal. SKIN: No rash, erythema or skin changes. Initial Vital Signs Initial Vital Signs: Vital Signs Blood Pressure 161/92 H 10/20/24 09:42 Course Orders Ordered: ED Orders 10/20/24 11:33 CT head/brain wo con Stat Discontinued Medications Aspirin (Aspirin 81 Mg Chew Tab) 324 mg PO NOW ONE Stop: 10/20/24 10:03 Last Admin: 10/20/24 10:12 Dose: Not Given Documented By: SPF Vital Signs Vital signs: Vital Signs - 8 hr 10/20/24 11:30 10/20/24 11:30 10/20/24 11:49 Pulse Rate 67 69 Respiratory Rate 20 14 Blood Pressure 141/81 H Pulse Oximetry 100 92 10/20/24 11:49 10/20/24 12:00 10/20/24 12:00 Pulse Rate 66 Respiratory Rate 17 Blood Pressure 154/90 H 144/81 H Pulse Oximetry 98 10/20/24 12:30 10/20/24 12:31 10/20/24 12:31 Pulse Rate 64 64 Respiratory Rate 15 15 Blood Pressure 155/81 H Pulse Oximetry 97 97 MDM - Chest Pain Lab Data 10/20/24 10:03 10/20/24 10:03 Labs: Lab Results 10/20/24 10/20/24 Range/Units 10:03 10:04 WBC 5.5 (4.5-11.0) X10^3/uL RBC 5.29 (4.5-5.9) X10^6/uL Hgb 15.5 (13.5-17.5) g/dL Hct 45.4 (41-53) % MCV 85.9 (80-100) fL MCH 29.4 (26-34) PG MCHC 34.2 (30-36) % RDW 13.7 (11.6-14.8) % Plt Count 141 L (150-400) X10^3/uL Neut % (Auto) 61.4 (50-75) % Lymph % (Auto) 29.5 (25-40) % [place] % (Auto) 6.2 (3-14) % Eos % (Auto) 1.9 L (2-4) % Baso % (Auto) 1.0 (0-2) % Neut # (Auto) 3400 (8948-8947) /uL Lymph # (Auto) 1600 (0712-7173) /uL [place] # (Auto) 300 (0-900) /uL Eos # (Auto) 100 (0-450) /uL Baso # (Auto) 100 (0-100) /uL PT 11.9 (9.4-12.5) SECONDS INR 1.1 (0.9-1.3) APTT 34 (25.1-36.5) SECONDS Sodium 139 (137-145) mmol/L Potassium 4.6 (3.4-5.1) mmol/L Chloride 105 (98-107) mmol/L Carbon Dioxide 30 (22-32) mmol/L BUN 18 (9-20) mg/dL Creatinine 0.98 (0.66-1.25) mg/dL Estimated GFR > 60 (>60) mL/min BUN/Creatinine Ratio 18.4 (6-22) Glucose 94 (80-110) mg/dL Calcium 9.4 (8.4-10.2) mg/dL Magnesium 2.1 (1.6-2.3) mg/dL Total Bilirubin 0.8 (0.2-1.3) mg/dL AST 31 (17-59) IU/L ALT 37 (<50) IU/L Alkaline Phosphatase 67 (38-126) U/L Total Creatine Kinase 31 L (55-170) U/L Troponin I < 0.012 (0.01-0.034) ng/mL NT-Pro-B Natriuret Pep 47 (<125) pg/mL Total Protein 6.8 (6.3-8.2) g/dL Albumin 4.2 (3.5-5.0) g/dL Globulin 2.6 (1.7-4.1) g/dL Albumin/Globulin Ratio 1.6 (1.0-2.8) Lipase 41 (23-300) U/L SARS-CoV-2 (PCR) Negative (Negative) Influenza A (RT-PCR) Flu a negative (NEGATIVE) Influenza B (RT-PCR) Flu b negative (NEGATIVE) Imaging Data Chest x-ray: Radiologist's Impression: Anupam Novoa??69??M??1955 ? Allergy/Adv: No Known Drug Allergies Close Chest X-Ray (Signed) Promise Reeves - 10/20/24 Chest X-Ray (Signed) Suzanne Mcdowell - 01/15/22 Upper GI Series w/ Air Contrast (Signed) Glenn Lyonsan - 05/01/18 Telemetry Strips 04/20/18 Launch?Image [address] [address] XRay Report Signed Patient: Anupam Novoa MR#: [id number] : 1955 Acct:[id number] Age/Sex: 69 / M Date of Service: 10/20/24 Loc: ED Accession Number: [id number] Procedure: XR chest 1V Ordering Provider: Velvet Jaime D.O. PROCEDURE: XR CHEST 1V INDICATIONS: chest pain TECHNIQUE: One view of the chest was acquired. COMPARISON: [facility], , XR CHEST 1V, 01/15/2022, 11:29. FINDINGS: Surgical changes and devices: None. Lungs and pleura: Lungs are hypoinflated but clear. No pleural effusions or pneumothorax. Mediastinum: Mediastinal contours appear normal. Heart size is normal. Bones and chest wall: No suspicious bony lesions. Overlying soft tissues appear unremarkable. IMPRESSION: No acute cardiopulmonary abnormality is seen. Dictated by: Promise Reeves M.D. on 10/20/2024 at 9:50 Approved by: Promise Reeves M.D. on 10/20/2024 at 9:51 ? CT scan - head: Radiologist's Impression: [address] [address] [address] Scan Report Signed Patient: Anupam Novoa MR#: [id number] : 1955 Acct:[id number] Age/Sex: 69 / M Date of Service: 10/20/24 Loc: ED Accession Number: [id number] Procedure: CT head/brain wo con Ordering Provider: Velvet Jaime D.O. PROCEDURE: CT HEAD/BRAIN WO CON INDICATIONS: intermittent brain fog x 2 weeks. TECHNIQUE: Noncontrast 4.5 mm thick angled axial sections acquired from the foramen magnum to the vertex, with coronal and sagittal reformats. For radiation dose reduction, the following was used: automated exposure control, adjustment of mA and/or kV according to patient size. COMPARISON: None. FINDINGS: Image quality: Diagnostic. CSF spaces: Basal cisterns are patent. No extra-axial fluid collections. The ventricles are symmetric in size and shape. Brain: No intracranial bleeds or masses. There is cerebral volume loss for age, with resultant ventricular and sulcal prominence. There are periventricular and deep white matter chronic small vessel ischemic changes. There is intracranial internal carotid artery atherosclerosis. Skull and face: Calvarium and visualized facial bones appear intact, without suspicious lesions. Sinuses: Visualized sinuses and mastoids are clear. IMPRESSION: No acute intracranial pathology. Dictated by: Promise Reeves M.D. on 10/20/2024 at 11:20 Approved by: Promise Reeves M.D. on 10/20/2024 at 11:21 ECG Data Attestation: I personally reviewed and interpreted this ECG as follows: Prior ECG tracings: not available for review Interpretation: Sinus rhythm, no acute ST elevation or depression rate of 65 CT 208 QRS of 86 QTC of 388. MDM Narrative Medical decision making narrative: 69-year-old male describes brain fog states he got lost yesterday while driving but states it improved. Patient states no acute lateralizing deficits he has a normal exam here he is currently asymptomatic. Attributes 7 his symptoms to long COVID and states he sort of had symptoms for the past 2 years but worse in the past 2 weeks. Labs show white count of 5.5 hemoglobin of 15.5 platelets of 141 patient chronic intermittent thrombocytopenia coags are negative. Patient's electrolytes, BUN creatinine LFTs negative total CK is 1 tropes less than 0.012 with a BNP of 47. Urine is negative for nitrates leuks glucose does have a small blood and protein. COVID and influenza is negative. Chest x-ray shows no acute change EKG shows sinus rhythm no acute ST changes. No prior for comparison. Head CT was obtained based on patient's symptoms. This shows no acute change. Patient to follow up with primary care for recheck. No acute neurologic changes today describes his symptoms as brain fog but he is alert clear and appropriate here in the department. Does have a urine culture pending. Discharge Plan Departure Patient Disposition: Home Clinical Impression: Brain fog Activity Restrictions/Additional Instructions: Please follow up with your primary care physician for recheck. Your workup today did not show any acute changes but you do have a urine culture pending this typically takes 48-72 hours to result if positive for infection you will be contacted. Please return for new or worsening symptoms, fevers, sudden changes in mentation, facial droop, numbness tingling or weakness difficulty with movement, severe headaches, persistent vomiting, loss of bowel or bladder control or other new or concerning changes. Prescriptions: No Action ondansetron 8 mg tablet,disintegrating 8 mg PO Q8H PRN (Reason: nausea and vomiting) Qty: 90 1RF Rx Instructions: Take as needed for nausea omeprazole 20 mg capsule,delayed release(DR/EC) 20 mg PO DAILY Qty: 90 3RF Referrals: Jroge Rodriguez DO [Primary Care Provider] - Stand Alone Forms: Patient Portal/API/Survey
--- NOTE | 2024-10-20 11:33 | DI.CT.S_ITS ---
PROCEDURE: CT HEAD/BRAIN WO CON INDICATIONS: intermittent brain fog x 2 weeks. TECHNIQUE: Noncontrast 4.5 mm thick angled axial sections acquired from the foramen magnum to the vertex, with coronal and sagittal reformats. For radiation dose reduction, the following was used: automated exposure control, adjustment of mA and/or kV according to patient size. COMPARISON: None. FINDINGS: Image quality: Diagnostic. CSF spaces: Basal cisterns are patent. No extra-axial fluid collections. The ventricles are symmetric in size and shape. Brain: No intracranial bleeds or masses. There is cerebral volume loss for age, with resultant ventricular and sulcal prominence. There are periventricular and deep white matter chronic small vessel ischemic changes. There is intracranial internal carotid artery atherosclerosis. Skull and face: Calvarium and visualized facial bones appear intact, without suspicious lesions. Sinuses: Visualized sinuses and mastoids are clear. IMPRESSION: No acute intracranial pathology. Dictated by: Promise Reeves M.D. on 10/20/2024 at 11:20 Approved by: Promise Reeves M.D. on 10/20/2024 at 11:21
--- NOTE | 2024-10-20 12:11 | PC.NURSE ---
Patient here in department for brain fog that got suddenly worse yesterday and the patient reports getting lost in an area that he is very familiar with. He also states that his vision for a couple of minutes was dimming and coming back in time with his heartbeat, that has since resolved. Patient also states that he has chronic back pain but its never gone into my kidneys before. patient is reporting no chest pain, just feels very tired
== END 2024-10-20 13:05 | disposition home or self-care (01) ==
PROVIDERS: Emergency Provider Emergency Medicine; PCP Family Medicine
DX: R41.0 Disorientation, unspecified (principal); R53.83 Other fatigue; R05.9 Cough, unspecified; Z11.52 Encounter for screening for COVID-19
CPT/HCPCS: 36415; 70450; 71045; 80053; 82550; 83690; 83735; 83880; 84484; 85025; 85610; 85730; 87086; 87635; 93005; 99283; 99284